=== PATIENT | female | born 1960 | race Caucasian/White ===

== ENCOUNTER → 2017-11-13 | Outpatient (CLI) | payer OTHER ==
--- NOTE | 2017-11-13 16:22 | RAD ---
EXAM: DIGITAL SCREEN BILAT W/CAD HISTORY: Routine Screening. COMPARISON: 08/13/2016 Standard mammographic views are obtained of the bilateral breasts. This study was interpreted with the benefit of Computerized Aided Detection (CAD). FINDINGS: The breast parenchyma is dense, which could reduce the sensitivity of mammography. Breast parenchyma level density D.. The patient's breasts overall appear to have denser glandular tissue than on prior examinations in a global pattern. There is repeat demonstration of some benign-appearing calcifications. IMPRESSION: There is global increase in density of the patient's glandular tissue within the bilateral breasts. Given the global nature this is most commonly benign in nature but given the change from prior examinations recommend that the patient return for bilateral diagnostic mammogram and ultrasound to further evaluate. BI-RADS CATEGORY: 0 NEED ADD'L IMAGE/PRIOR MAMMO RECOMMENDED FOLLOW-UP: ADD ADDITIONAL IMAGING PQRS compliance statement: Patient information was entered into a reminder system with a target due date for the next mammogram. Mammography is a sensitive method for finding small breast cancers, but it does not detect them all and is not a substitute for careful clinical examination. A negative mammogram does not negate a clinically suspicious finding and should not result in delay in biopsying a clinically suspicious abnormality. "Our facility is accredited by the [employer] Mammography [employer]."
== END | disposition home or self-care (01) ==
LOC: MAMMO 15:03 → MERGE 15:03
PROVIDERS: ATTEND Physician Assistant Medical
DX: Z12.31 Encounter for screening mammogram for malignant neoplasm of breast (principal)
CPT/HCPCS: 77067

== ENCOUNTER → 2017-11-18 | Outpatient (CLI) | payer OTHER ==
--- NOTE | 2017-11-18 11:41 | RAD ---
Ultrasound bilateral breasts Indication: Dense breast tissue. Technique: Grayscale and color Doppler ultrasound images of the bilateral breasts obtained. Comparison: Same day diagnostic mammogram Findings: Bilateral periareolar prominent ducts noted. No solid or cystic lesion in the right breast. Multiple well-circumscribed anechoic lesions are seen in the left breast with posterior acoustic enhancement and no internal vascularity, the largest measuring 1.3 x 1.1 x 1.0 cm approximately 10 cm from the nipple at 3:00 position. Impression: 1. 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 2. Multiple left breast simple cysts. BI-RADS 2: Benign findings. Continued annual screening.
--- NOTE | 2017-11-18 11:44 | RAD ---
DATE: 11/18/2017 EXAM: DIGITAL DIAGNOSTIC BILATERAL HISTORY: Callback for bilateral dense breast tissues. COMPARISON: Screening mammogram from 11/13/2017 This study was interpreted with the benefit of Computerized Aided Detection (CAD). Bilateral mediolateral and bilateral MLO and CC spot compression views of the breasts obtained. FINDINGS: Breast Density: DENSE The breast Parenchyma is dense, which could reduce the sensitivity of mammography. Breast parenchyma level density D.. The skin and nipples are within normal limits. Nodular densities are seen in the left breast. Benign scattered calcifications. IMPRESSION: No mammographic abnormality. Please see ultrasound done on the same day.. BI-RADS CATEGORY: 2 BENIGN FINDING(S) RECOMMENDED FOLLOW-UP: 12M 12 MONTH FOLLOW-UP PQRS compliance statement: Patient information was entered into a reminder system with a target due date for the next mammogram. Mammography is a sensitive method for finding small breast cancers, but it does not detect them all and is not a substitute for careful clinical examination. A negative mammogram does not negate a clinically suspicious finding and should not result in delay in biopsying a clinically suspicious abnormality. "Our facility is accredited by the [employer] Mammography [employer]."
== END | disposition home or self-care (01) ==
LOC: MAMMO 09:39
PROVIDERS: ATTEND Physician Assistant Medical
DX: N60.02 Solitary cyst of left breast (principal)
CPT/HCPCS: 76641; 77066

== ENCOUNTER → 2018-07-20 | Outpatient (CLI) | payer OTHER ==
[2018-07-20 15:34] LABS: ALBUMIN/GLOBULIN RATIO 1.1 (1.0-1.7); BASO # 0.1 x10^3/uL (0.0-0.2); BASO % 1 % (0-3); CALCIUM 9.1 mg/dL (8.5-10.1); EOS # 0.2 x10^3/uL (0.0-0.7); EOS % 2 % (0-3); GFR 57.1; HEMATOCRIT 42.5 % (36.0-47.0); LYMPH # 2.3 x10^3/uL (1.0-4.8); LYMPH % 24 % (24-48); MEAN CORPUSCULAR HEMOGLOBIN 31 pg (25-35); MEAN CORPUSCULAR HGB CONC 35 g/dL (31-37); MEAN CORPUSCULAR VOLUME 89 fL (79-100); MONO # 0.6 x10^3/uL (0.0-1.1); MONO % 7 % (0-9); NEUT # 6.3 x10^3uL (1.8-7.7); NEUT % 67 % (31-73); PLATELET COUNT 236 x10^3/uL (140-400); POTASSIUM 3.1 mmol/L (3.5-5.1); TOTAL BILIRUBIN 0.7 mg/dL (0.2-1.0); TOTAL PROTEIN 7.5 g/dL (6.4-8.2); WHITE BLOOD COUNT 9.4 x10^3/uL (4.0-11.0)
[2018-07-21 04:09] LABS: ESTRADIOL LEVEL 66.2 pg/mL (.); PROGESTERONE 4.1 ng/mL (.); T3 TOTAL 96 ng/dL (71-180); THYROXINE 8.3 ug/dL (4.5-12.0)
[2018-07-21 06:11] LABS: HOMOCYTSINE LEVEL 9.7 umol/L (0.0-15.0)
[2018-07-21 09:15] LABS: HEMOGLOBIN A1C 5.1 % (4.8-5.6)
[2018-07-23 05:12] LABS: DHEA 120 ng/dL (31-701)
== END | disposition home or self-care (01) ==
LOC: LAB 14:40
PROVIDERS: ATTEND General Practice
DX: E03.9 Hypothyroidism, unspecified (principal); E55.9 Vitamin D deficiency, unspecified; N95.1 Menopausal and female climacteric states; Z83.3 Family history of diabetes mellitus; Z82.49 Family history of ischemic heart disease and other diseases of the circulatory system
CPT/HCPCS: 36415; 80053; 82306; 82626; 82670; 82679; 83036; 83090; 84144; 84402; 84403; 84436; 84443; 84480; 85025; 86141

== ENCOUNTER → 2019-06-15 | Outpatient (CLI) | payer OTHER ==
--- NOTE | 2019-06-15 13:52 | RAD ---
EXAM: Chest, 2 views. HISTORY: Chest wall pain. COMPARISON: None. FINDINGS: 2 views of the chest are obtained. There is no infiltrate, pleural effusion or pneumothorax. The heart is normal in size. IMPRESSION: No acute pulmonary finding. Electronically signed by: Mindy Quinn MD (06/15/2019 1:49 PM) [place] [id number]
== END | disposition home or self-care (01) ==
LOC: RAD 12:45
PROVIDERS: ATTEND Physician Assistant Medical
DX: R07.89 Other chest pain (principal)
CPT/HCPCS: 71046

== ENCOUNTER → 2020-01-12 | Outpatient (CLI) | payer OTHER ==
--- NOTE | 2020-01-12 14:06 | RAD ---
History: Routine screening. Technique: Bilateral digital mammographic routine views were obtained with 2-D and 3-D technique including use of CAD - computer aided detection. Comparison: 11/18/2017, 11/13/2017 and 08/13/2016.. Findings: Breast Tissue Density D :The breast tissue is extremely dense, lowering the sensitivity of the examination. There are no suspicious masses, microcalcifications or areas of architectural distortion. Impression: Dense breast tissue. No suspicious abnormality noted. BI-RADS Category 1: Negative. Normal interval followup. Your mammogram demonstrates that you have dense breast tissue, which could hide abnormalities, and if you have other risk factors for breast cancer that have been identified, you might benefit from supplemental screening tests that may be suggested by your ordering physician. Dense breast tissue, in and of itself, is a relatively common condition. This information is not provided to cause undue concern, but rather to raise your awareness and to promote discussion with your physician regarding the presence of other risk factors, in addition to dense breast tissue. A report of your mammography results will be sent to you and your physician. You should contact your physician if you have any questions or concerns regarding this report. A mammogram does not have 100% sensitivity and therefore a negative imaging study should not delay further work up of a suspicious abnormality. The patient will receive a letter with the results in the mail. Patient information is entered into the reminder system with a target due date for the next screening mammogram. The patient will receive a reminder. "Our facility is accredited by the [employer] Mammography [employer]." BI-RADS 1 -- negative findings (within normal)
== END | disposition home or self-care (01) ==
LOC: MAMMO 12:56
PROVIDERS: ATTEND Physician Assistant Medical
DX: Z12.31 Encounter for screening mammogram for malignant neoplasm of breast (principal)
CPT/HCPCS: 77063; 77067

== ENCOUNTER → 2020-01-26 | Outpatient (CLI) | payer OTHER ==
--- NOTE | 2020-01-26 13:18 | RAD ---
MR#: [id number] Date of Study: 01/26/2020 Ordering Physician: RADHA SANCHEZ Referring Physician: MARGIE MILLER Tech: APPROVED REPORT Test Type: Exercise Stress Nurse/Tech: PATTY Abarca Test Indications: chest pain Cardiac History: No known cardiac Medications: See Electronic Medical Record Medical History: See Electronic Medical Record Resting ECG: sr Resting Heart Rate: 83 bpm Resting Blood Pressure: 132/66mmHg Pretest Chest Pain: None Nurse/Tech Notes SR, MILD ST depressionw/ stress resolved at rest Consent: The procedure was explained to the patient in lay terms. Informed consent was witnessed. Dank eout was entered into [employer]. History and Stress Test performed by Che Hare, MARGIETCIsamar, ARRT (R) (N) Stress Symptoms No chest pain or symptoms.Fatigue POST EXERCISE Reason for Termination: Reached target heart rate Target HR: Yes Max HR: 178 bpm 114% of Maximum Predicted HR: 136 bpm Exercise duration: 11:14 min:sec, Stage Exercise capacity: 7.0METs Max Blood Pressure: 174/86mmHg Blood Pressure response to exercise: Normal blood pressure response during stress. Chest Pain: No. ST Change: Yes. depression resolved with rest INTERPRETATION Stress EKG Conclusion: sr, mild ST depression resolved at rest Other Information Quality:Fair Risk Assessment: Low Risk Conclusion 1. Treadmill only stress test. 2. Patient had average excise capacity with 7 metabolic equivalence reached 3. Resting EKG is unremarkable. 4. Stress EKG does not reveal any acute ischemia. Normal blood pressure response. 5. Overall, low risk study Signed by : Tad Blackwood, Electronically Approved : 01/26/2020 13:18:34
== END | disposition home or self-care (01) ==
LOC: NM 08:45
PROVIDERS: ATTEND Internal Medicine Cardiovascular Disease
DX: R07.9 Chest pain, unspecified (principal)
CPT/HCPCS: 93017

== ENCOUNTER → 2020-03-27 | Outpatient (CLI) | payer OTHER ==
--- NOTE | 2020-03-27 10:05 | CARD ---
MR#: [id number] Date of Study: 03/27/2020 Ordering Physician: RADHA SANCHEZ, Referring Physician: RADHA SANCHEZ Tech: Jessica Callaway RDCS APPROVED REPORT EXAM: Two-dimensional and M-mode echocardiogram with Doppler and color Doppler. Other Information Quality : Fair Technically limited study due to body habitus. INDICATION Chest Pain 2D DIMENSIONS RVDd2.0 (2.9-3.5cm)Left Atrium(2D)2.7 (1.6-4.0cm) IVSd1.1 (0.7-1.1cm)Aortic Root(2D)2.9 (2.0-3.7cm) LVDd4.5 (3.9-5.9cm)LVOT Diameter2.0 (1.8-2.4cm) PWd0.9 (0.7-1.1cm)LVDs3.2 (2.5-4.0cm) FS (%) 29.2 %SV51.7 ml LVEF(%)56.2 (>50%) Aortic Valve AoV Peak Uriel.127.1cm/sAoV VTI25.9cm AO Peak GR.6.5mmHgLVOT Peak Uriel.108.7cm/s LVOT VTI 23.08cmAO Mean GR.4mmHg KYLE (VMAX)2.88ep2VYM (VTI)2.75cm2 Mitral Valve MV E Mkbqrzli95.1cm/sMV DECEL LEJQ646cn MV A Yuwjnvdo32.4cm/sE/A Ratio0.9 Tricuspid Valve TR P. Lybbejhz988aq/sRAP PKPWNPWA3xwGw TR Peak Gr.17glLyIESS85tcIl Pulmonary Vein S1 Epjydxlk97.1cm/sD2 Bvyuthws52.0cm/s LEFT VENTRICLE The left ventricle is normal size. There is normal left ventricular wall thickness. The left ventricu lar systolic function is normal and the ejection fraction is within normal range. The Ejection Fracti on is 55-60%. There is normal LV segmental wall motion. Transmitral Doppler flow pattern is Grade I-a bnormal relaxation pattern. RIGHT VENTRICLE The right ventricle is normal size. The right ventricular systolic function is normal. ATRIA The left atrium size is normal. The right atrium size is normal. The interatrial septum is intact wit h no evidence for an atrial septal defect or patent foramen ovale as noted on 2-D or Doppler imaging. AORTIC VALVE The aortic valve is normal in structure and function. Doppler and Color Flow revealed no significant aortic regurgitation. There is no significant aortic valvular stenosis. MITRAL VALVE The mitral valve is calcified but opens well. Mitral annular calcification is mild. There is no evide nce of mitral valve prolapse. There is no mitral valve stenosis. Doppler and Color-flow revealed trac e mitral regurgitation. TRICUSPID VALVE The tricuspid valve is normal in structure and function. Doppler and Color Flow revealed trace tricus pid regurgitation. The PA pressure was estimated at 25 mmHg. There is no tricuspid valve stenosis. PULMONIC VALVE The pulmonic valve is not well visualized. Doppler and Color Flow revealed no pulmonic valvular regur gitation. There is no pulmonic valvular stenosis. GREAT VESSELS The aortic root is normal in size. The ascending aorta is normal in size. The IVC is normal in size a nd collapses >50% with inspiration. PERICARDIAL EFFUSION There is no evidence of significant pericardial effusion. Critical Notification Critical Value: No <Conclusion> The left ventricular systolic function is normal and the ejection fraction is within normal range. Th e Ejection Fraction is 55-60%. There is normal LV segmental wall motion. Signed by : Tad Blackwood, Electronically Approved : 03/27/2020 10:05:05
== END | disposition home or self-care (01) ==
LOC: ECHO 08:50
PROVIDERS: ATTEND Internal Medicine Cardiovascular Disease
DX: I05.9 Rheumatic mitral valve disease, unspecified (principal)
CPT/HCPCS: 93306

== ENCOUNTER → 2021-03-19 | Outpatient (CLI) | payer OTHER ==
--- NOTE | 2021-03-19 11:24 | RAD ---
DATE: March 19, 2021 EXAM: MAMMO DAVID SCREENING BILATERAL HISTORY: Screening study. COMPARISON: 2017 and 2019 This study was interpreted with the benefit of Computerized Aided Detection (CAD). FINDINGS: Breast Density: DENSE The breast parenchyma is dense, which could reduce the sensitivity of mammography. Breast parenchyma level density D.. There are no dominant suspicious masses, suspicious microcalcifications or evidence of architectural distortion. IMPRESSION: No mammographic indicators for malignancy. BI-RADS CATEGORY: 1 NEGATIVE RECOMMENDED FOLLOW-UP: 12M 12 MONTH FOLLOW-UP PQRS compliance statement: Patient information was entered into a reminder system with a target due date March 20, 2022 for the next mammogram. Mammography is a sensitive method for finding small breast cancers, but it does not detect them all and is not a substitute for careful clinical examination. A negative mammogram does not negate a clinically suspicious finding and should not result in delay in biopsying a clinically suspicious abnormality. "Our facility is accredited by the [employer]ammography [employer]." The patient's breast density may affect the ability of mammography to detect breast cancer. There are 4 categories of breast density, A, B, C and D. Breast density A means that most of the breast tissue is replaced with adipose tissue and therefore is not dense. Breast density B means that the breast tissue is mildly dense and scattered. Breast density C means that the breast tissue is heterogeneously dense. Breast density D means that the breast tissue is very dense. Breast densities especially C and D may decrease the sensitivity of mammography to detect breast cancer. Therefore, the patient may benefit from 3-D breast mammography (3D breast tomography) as a part of their screening mammogram. Insurance may or may not pay for this additional imaging. The patient's breast density based on today's mammogram is category D.
== END ==
LOC: MAMMO 08:31
PROVIDERS: ATTEND Physician Assistant Medical
DX: Z12.31 Encounter for screening mammogram for malignant neoplasm of breast (principal)
CPT/HCPCS: 77063; 77067